=== PATIENT | male | born 1990 | race American Indian/Alaskan Native ===

== ENCOUNTER 2018-04-23 01:56 | Emergency (ER) | payer MEDICAID ==
[2018-04-23 03:44] LABS: BASOPHIL % 0.5 % (0-2); PLATELET COUNT 260 x10^3mcL (130-400); RED CELL DISTRIBUTION WIDTH 12.2 % (11.5-14.5)
[2018-04-23 03:55] LABS: CALCIUM 8.9 mg/dL (8.5-10.1); CARBON DIOXIDE 23.4 mmol/L (21-32); CHLORIDE SERUM 105 mmol/L (98-107); GFR1 > 60 mL/min; GLUCOSE SERUM 95 mg/dL (74-106); POTASSIUM SERUM 3.8 mmol/L (3.5-5.1); SODIUM SERUM 141 mmol/L (136-145)
[2018-04-23 03:59] LABS: AMPHETAMINE QUAL UR NONE DETECTED (See below)
[2018-04-23 04:02] LABS: ALKALINE PHOSPHATASE 63 U/L (46-116); ALT/SGPT 90 U/L (16-63); AST/SGOT 50 U/L (15-37); TOTAL PROTEIN, SERUM 7.7 g/dL (6.4-8.2)
[2018-04-23] MEDS ORDERED: METFORMIN HCL1000 MG PO (06:22)
[2018-04-23] MEDS ORDERED: MICROZIDE12.5 MG PO (06:23)
[2018-04-23] MEDS ORDERED: CATAPRES0.1 MG PO (06:24)
[2018-04-23] MEDS ORDERED: AMOXICILLIN500 MG PO (06:25)
[2018-04-23] MEDS ORDERED: ASPIR 8181 MG PO (06:25)
[2018-04-23] MEDS ORDERED: ATENOLOL50 MG PO (06:25)
[2018-04-23] MEDS ORDERED: ZESTRIL40 MG PO (06:27)
[2018-04-23] MEDS ORDERED: GLIMEPIRIDE2 M1 PO (06:28)
[2018-04-23] MEDS ORDERED: LIPI10 PO (06:29)
[2018-04-23 08:08] VITALS: BP 153/99
== END 2018-04-23 08:14 | disposition home or self-care (01) ==
LOC: ED 01:56
PROVIDERS: Emergency Medicine
DX: R45.851 Suicidal ideations (principal); F10.129 Alcohol abuse with intoxication, unspecified
CPT/HCPCS: 36415; G0480